=== PATIENT | male | born 1975 | race Two or more races ===

== ENCOUNTER 2017-09-18 16:54 | Emergency (ER) | payer MEDICAID ==
[~2017-09-18] VITALS: Ht 175.3 cm; Wt 81.6 kg
[~2017-09-18 16:54] MED LIST: HYDR-4683 PO; LEVO500T21 PO; METR500T PO
[2017-09-18 18:01] LABS: Basophils # (auto) 0 uL; Basophils % (auto) 0.3 % (0.0-2.0); Eosinophils # (auto) 0 uL; Eosinophils % (auto) 0.6 % (0.0-7.0); Hematocrit 37.1 % (41.0-53.0); Hemoglobin 12.6 g/dL (13.5-17.5); Lymphocytes # (auto) 0.2 uL; Lymphocytes % (auto) 8.1 % (10.0-50.0); Mean Corpuscular Hemoglobin 32.3 pg (28.0-32.0); Mean Corpuscular Hgb Conc. 33.8 g/dL (32.0-36.0); Mean Corpuscular Volume 95.4 fL (80.0-100.0); Monocytes # (auto) 0 uL; Monocytes % (auto) 0.3 % (0.0-12.0); Neutrophils # (auto) 1.9 uL; Neutrophils % (auto) 90.7 % (37.0-80.0); Nucleated Red Blood Cells % 0.1 %; Platelet Count (auto) 124 10^3/uL (140-450); Red Blood Cells 3.89 10^6/uL (4.5-5.90); Red Cell Distribution Width 14.3 % (11.8-14.3); White Blood Cell 2.1 10^3/uL (4.4-10.8)
[2017-09-18 18:19] LABS: Alanine Aminotransferase 138 U/L (16-61); Albumin 2.7 g/dL (3.4-5.0); Anion Gap 10 (5-15); Aspartate Aminotransferase 377 U/L (15-37); BUN/Creatinine Ratio 12.7; Blood Urea Nitrogen 13 mg/dL (7-18); Calcium 7.4 mg/dL (8.5-10.1); Carbon Dioxide 22 mmol/L (21-32); Chloride 108 mmol/L (98-107); GFR African American 104 mL/min; GFR Non-African American 86 mL/min; Glucose 104 mg/dL (74-106); Sodium 140 mmol/L (136-145)
[2017-09-18 18:21] LABS: Potassium 2.8 mmol/L (3.5-5.1)
[2017-09-18 18:23] LABS: Alkaline Phosphatase 167 U/L (45-117); Bilirubin, Total 1.1 mg/dL (0.2-1.0); Total Protein 5.9 g/dL (6.4-8.2)
[2017-09-18 19:33] LABS: Urine Bacteria NONE SEEN /hpf (None Seen); Urine Blood Negative /uL (Negative); Urine Mucus FEW (None Seen); Urine Specific Gravity 1.014 (1.001-1.035); Urine WBC 1 /hpf (0 - 3)
[2017-09-18] MEDS ORDERED: THIAMINE INJ 100 MG, MULTIPLE VITAMIN 10 ML, FOLIC ACID 1 MG, MAGNESIUM SULF SDV 50% 8 ... IV STA ×5 (20:13)
[2017-09-18] MEDS ORDERED: POTASSIUM CHL 20 Meq TABLET PO ONE (20:15)
[2017-09-18 20:33] VITALS: BP 108/66
[2017-09-18 21:04] LABS: Alcohol, Urine < 3.0 mg/dL (0-5); Amphetamine Screen, Urine POSITIVE (NEGATIVE); Barbiturate Scree,Urine NEGATIVE (NEGATIVE); Benzodiazephine Screen, Urine NEGATIVE (NEGATIVE); Cannabinoid Screen, Urine POSITIVE (NEGATIVE); Cocaine Screen, Urine NEGATIVE (NEGATIVE); Opiate Scree,Urine NEGATIVE (NEGATIVE); Phencyclidine Screen, Urine NEGATIVE (NEGATIVE)
[2017-09-18] MEDS ORDERED: HYDROcodone-ACET 5/325MG TAB PO ONE (21:15)
== END 2017-09-18 23:59 | disposition home or self-care (01) ==
LOC: ER 16:54 → EDBD 16:54 → ER 23:59
DX: R53.1 Weakness (principal); E87.6 Hypokalemia; F15.10 Other stimulant abuse, uncomplicated; F12.10 Cannabis abuse, uncomplicated; F17.210 Nicotine dependence, cigarettes, uncomplicated
CPT/HCPCS: 36415; 80053; 80307; 80320; 81001; 84484; 85025; 94761; 96365; 99284; J3411; J3475; J7030

== ENCOUNTER 2019-07-25 15:54 | Emergency (ER) | payer MEDICAID ==
[~2019-07-25] VITALS: Ht 177.8 cm; Wt 81.6 kg
[~2019-07-25 15:54] MED LIST changes: -HYDR-4683 PO; +HYDR-4833 PO
[2019-07-25 19:33] LABS: Basophils # (auto) 0 10 ^3/uL (0-0.2); Basophils % (auto) 0.4 % (0.0-2.0); Eosinophils # (auto) 0.1 10 ^3/uL (0-0.8); Eosinophils % (auto) 1.3 % (0.0-7.0); Hemoglobin 14.4 g/dL (13.5-17.5); Lymphocytes # (auto) 1.3 10 ^3/uL (0.4-5.4); Lymphocytes % (auto) 16.4 % (10.0-50.0); Mean Corpuscular Hemoglobin 31.6 pg (28.0-32.0); Mean Corpuscular Hgb Conc. 33.5 g/dL (32.0-36.0); Mean Corpuscular Volume 94.4 fL (80.0-100.0); Monocytes # (auto) 0.4 10 ^3/uL (0-1.3); Monocytes % (auto) 4.9 % (0.0-12.0); Neutrophils # (auto) 5.9 10 ^3/uL (1.6-8.6); Nucleated Red Blood Cells % 0.4 %; Platelet Count (auto) 257 10^3/uL (140-450); Red Blood Cells 4.55 10^6/uL (4.5-5.90); Red Cell Distribution Width 13.8 % (11.8-14.3); White Blood Cell 7.7 10^3/uL (4.4-10.8)
[2019-07-25 19:51] LABS: Albumin 3.9 g/dL (3.4-5.0); BUN/Creatinine Ratio 18.1; Calcium 9.2 mg/dL (8.5-10.1); Potassium 3.8 mmol/L (3.5-5.1)
[2019-07-25 19:53] LABS: Bilirubin, Total 0.6 mg/dL (0.2-1.0)
[2019-07-26 02:16] VITALS: BP 121/80
[2019-07-26] MEDS ORDERED: HYDROcodone-ACET 5/325MG TAB PO ONE (02:45)
[2019-07-26] MEDS ORDERED: HYDROcodone-ACET 5/325MG TAB ONE (02:57)
== END 2019-07-26 02:29 | disposition home or self-care (01) ==
LOC: EDBD 15:54 → ER 15:54
DX: I86.1 Scrotal varices (principal); F17.210 Nicotine dependence, cigarettes, uncomplicated; Z87.440 Personal history of urinary (tract) infections
CPT/HCPCS: 36415; 74176; 80053; 85025

== ENCOUNTER 2021-03-27 20:57 | Emergency (ER) | payer MEDICAID ==
[~2021-03-27] VITALS: Ht 177.8 cm; Wt 77.1 kg
[~2021-03-27 20:57] MED LIST changes: -LEVO500T21 PO; +LEVO500T31 PO
[2021-03-28 00:23] LABS: Albumin 3.6 g/dL (3.4-5.0); Calcium 8.7 mg/dL (8.5-10.1)
[2021-03-28 00:46] LABS: Potassium 2.9 mmol/L (3.5-5.1)
[2021-03-28] MEDS ORDERED: POTASSIUM CHL 20 Meq TABLET PO ONE (01:00)
[2021-03-28 01:07] LABS: BUN/Creatinine Ratio 11.3; Bilirubin, Total 0.7 mg/dL (0.2-1.0); Total Protein 8.3 g/dL (6.4-8.2)
[2021-03-28 01:15] LABS: Eosinophils # (auto) 0 10 ^3/uL (0-0.8); Lymphocytes # (auto) 0.4 10 ^3/uL (0.4-5.4); Red Cell Distribution Width 14.2 % (11.8-14.3)
[2021-03-28 01:20] LABS: Basophils # (auto) 0 10 ^3/uL (0-0.2); Basophils % (auto) 0.1 % (0.0-2.0); Hematocrit 44.1 % (41.0-53.0); Hemoglobin 14.8 g/dL (13.5-17.5); Mean Corpuscular Hemoglobin 29.7 pg (28.0-32.0); Mean Corpuscular Hgb Conc. 33.5 g/dL (32.0-36.0); Mean Corpuscular Volume 88.6 fL (80.0-100.0); Monocytes # (auto) 1.4 10 ^3/uL (0-1.3); Monocytes % (auto) 7.7 % (0.0-12.0); Neutrophils # (auto) 16.7 10 ^3/uL (1.6-8.6); Neutrophils % (auto) 90.2 % (37.0-80.0); Nucleated Red Blood Cells % 0.2 %; Red Blood Cells 4.97 10^6/uL (4.5-5.90); White Blood Cell 18.5 10^3/uL (4.4-10.8)
[2021-03-28] MEDS: POTASSIUM CHL 10MEQ/50ML 50 ML IV SCH ×3 (01:23→04:03)
[2021-03-28 03:15] VITALS: BP 125/85
[2021-03-28] MEDS ORDERED: ONDA-155 PO (03:47)
[2021-03-28] MEDS ORDERED: FAMO20TA10 PO (03:47)
[2021-03-28 04:00] LABS: Urine Bacteria NONE SEEN /hpf (None Seen); Urine Blood Negative /uL (Negative); Urine Hyaline Cast FEW /lpf (0 - 2); Urine Specific Gravity 1.008 (1.001-1.035); Urine WBC 1 /hpf (0 - 3)
== END 2021-03-28 04:30 | disposition home or self-care (01) ==
LOC: EDBD 20:57 → ER 20:57
DX: K52.9 Noninfective gastroenteritis and colitis, unspecified (principal); E87.6 Hypokalemia
CPT/HCPCS: 36415; 71046; 80053; 81001; 84484; 85025; 87426; 96365; 96366; 99284; J3480